=== PATIENT | female | born 1995 | race Hispanic/Latino ===

== ENCOUNTER → 2020-06-15 | Outpatient (CLI) | payer OTHER ==
[2020-06-16 14:47] LABS: SARS-CoV-2 MS2 Positive; SARS-CoV-2 N Gene Negative; SARS-CoV-2 S Gene Negative; SARS-CoV-2 by NAA Not Detected (NotDetected); SARS-CoV-2 orf1ab Negative
== END ==
LOC: LABBT 08:00
PROVIDERS: ATTEND Family Medicine
DX: Z20.828 Contact with and (suspected) exposure to other viral communicable diseases (principal)
CPT/HCPCS: 87635; U0003

== ENCOUNTER 2020-06-16 18:00 | Inpatient (IN) | payer MEDICAID, OTHER, SELFPAY ==
[~2020-06-16 18:00] MED LIST: Bupivacaine/Epinephrine 0.25% 30 ML VIAL ONE
[2020-06-16] MEDS ORDERED: hydrALAZINE 20 MG/ML VIAL SLOW IVP PRN (18:32)
[2020-06-16] MEDS ORDERED: Acetaminophen 500 MG TAB PO PRN (18:32)
[2020-06-16] MEDS ORDERED: Ondansetron PF 4 MG/2 ML Vial IVP PRN (18:32)
[2020-06-16] MEDS ORDERED: Lidocaine 1% (PF) 30 ML VIAL SC PRN (18:32)
[2020-06-16] MEDS ORDERED: NS / Oxytocin 40 units/1000ml 1,000 ML IV PRN (18:32)
[2020-06-16] MEDS ORDERED: Promethazine HCl 25 MG/ML VIAL IM PRN (18:32)
[2020-06-16] MEDS ORDERED: Misoprostol 100 MCG TAB VAG SCH (22:45)
[2020-06-16] MEDS ORDERED: Meperidine HCl/PF 25 MG/ML VIAL IM/IV PRN (22:45)
[2020-06-16] MEDS ORDERED: Butorphanol Tartrate 1 MG/ML VIAL SLOW IVP PRN (22:45)
[2020-06-17 00:06] LABS: Hemoglobin 13.4 g/dL (12.0-16.0); Mean Corpuscular HGB CONC 34.3 g/dL (32.0-36.0); Mean Corpuscular Volume 90.4 fL (78.0-98.0); Mean Platelet Volume 10.5 fL (7.4-10.4); Platelet Count 156 thou/uL (130-400); RBC Distribution Width 13.5 % (11.5-14.5); Red Blood Cell (RBC) Count 4.33 mill/uL (4.20-5.40); White Blood Cell (WBC) Count 6.5 thou/uL (4.8-10.8)
[2020-06-17] MEDS: Lactated Ringer's 1,000 ML IV SCH ×2 (00:09→05:52)
[2020-06-17 00:31] VITALS: BMI 25.0
[2020-06-17 00:33] LABS: HBSAg Index 0.14 S/CO (0-0.99); Hep B Surf Ag Non-Reactive S/CO (NonReactive); Syphilis Antibody Nonreactive (Nonreactive); Syphilis Antibody Index 0.01 S/CO (<1.00 Non-Reactive)
[2020-06-17] MEDS: Misoprostol 100 MCG TAB VAG SCH ×4 (01:09→11:26)
--- NOTE | 2020-06-17 02:33 | PDOC.FPROB ---
FMR OB H&P: HPI - History of Present Illness Chief Complaint: mIOL for A1GDM History of Present Illness: 25 yo presenting for mIOL for A1GDM at 39.6wks by 12.4wk US. Patient is feeling baby move. She denies contractions, bleeding, or LOF. Her BG have been 100-120 lately. FMR OB H&P: Current - Care : 2 Para: 1001 Gestational age: 39.6 Dating Criteria: 12.4wk sono - OB Labs Blood type: A RH: positive Antibody Screen: negative HIV: negative RPR: negative HepBsAg: negative Rubella: immune Quad screen: negative Gonorrhea: negative Chlamydia: negative Pap Smear: NIL 11/2019 1 hour gtt: 2hr: 88/192/79 GBS: negative - Additional Ultrasound Additional: 04/05: Hadlock 27.3% FMR OB H&P: History - Past Medical History PMH: None - OB History OB History: Previous vaginal delivery, no complications - CONGRESSIONAL REPRESENTATIVE History CONGRESSIONAL REPRESENTATIVE History: Pap: NILM 11/2019 - Surgical History Sx History: None - Social History Social History: Denies tobacco, alcohol, or drug use - Family History Family History: Mom-Diabetes FMR OB H&P: Medications - Current Home Medications: Medication Instructions Recorded Confirmed Type Pnv95/Iron Fum/Folic Acid 1 capsule PO DAILY 04/23/16 06/17/20 History [ [place]] Ferrous Sulfate [Iron] 1 tab PO DAILY 06/17/20 06/17/20 History Allergies/Adverse Reactions: Allergies Allergy/AdvReac Type Severity Reaction Status Date / Time No Known Allergies Allergy Verified 06/17/20 00:17 FMR OB H&P: ROS - Review of Systems General: denies: fever/chills Eyes: denies: vision changes ENT: denies: nasal congestion Cardiovascular: denies: chest pain, palpitation, edema Respiratory: denies: cough, congestion, shortness of breath Gastrointestinal: denies: abdominal pain, cramping, nausea, vomiting, diarrhea, constipation Genitourinary (Female): denies: dysuria, vaginal discharge, vaginal bleeding Neurologic: denies: headache FMR OB H&P: Vital Signs - Maternal Vital signs: Vital Signs - First Documented Temp 98.4 F 06/16/20 18:33 BP 116/65 - Heart Tones Baseline: 130 Acceleration: present Deceleration: absent Category: category 1 Wye contractions every: 4-6 min FMR OB H&P: Physical Exam - Physical Exam General: NAD HEENT: normocephalic and atraumatic, EOMI, conjunctiva clear, no scleral icterus , grossly normal vision, grossly normal hearing Neck: FROM Heart: RRR, no murmurs/rubs/gallops, pulses present, no edema General: CTAB, no respiratory distress Abdomen: gravid Musculoskeletal: pulses present, FROM in all four extremities Neurological: sensation to pain,touch and proprioception grossly normal Psychiatric: intact recent and remote memory, good judgement and insight, normal mood and affect - Pelvic Exam Vulva: normal hair distribution, appropriate bela stage, no lesions SVE: 50/-3 Rios score: 4 Membranes: intact Presentation: cephalic FMR OB H&P: Results - Labs Lab results: Laboratory Results - last 24 hr 06/16/20 06/16/20 06/16/20 23:44 23:44 23:44 WBC RBC Hgb Hct MCV MCH MCHC RDW Plt Count MPV POC Glucose Syphilis IgG/IgM Ab Nonreactive Hep Bs Antigen Non-Reactive Blood Type A POSITIVE Antibody Screen NEGATIVE 06/16/20 06/17/20 06/17/20 23:44 00:49 01:04 WBC 6.5 RBC 4.33 Hgb 13.4 Hct 39.1 MCV 90.4 MCH 31.0 MCHC 34.3 RDW 13.5 Plt Count 156 MPV 10.5 H POC Glucose 108 Syphilis IgG/IgM Ab Hep Bs Antigen Blood Type A POSITIVE Antibody Screen FMR OB H&P: A/P Discussion: Date/Time: 06/17/20 0233 25 yo presenting for mIOL for A1GDM at 39.6wks mIOL Baby cephalic presentation Cat 1 tracin/mod/+accels/no deccels 50/-3 @ 0034, Rios 4 Cytotec placed at 0100 A1GDM reason for mIOL BG 100-120 at home 04/05 US showed Hadlock 27.3% Q6h glucose checks This H&P was discussed with Dr. Yusuf and Dr. Smalls who agree with the above documentation and plan. Addendum - Attending - Attending Attestation Date/Time: 06/17/20 0838 I personally evaluated the patient and discussed the management with Dr. Hutchinson at time of admission.. I agree with the History, Examination, Assessment and Plan documented above with any addition or exceptions noted below.
[2020-06-17] MEDS ORDERED: Fentanyl 4 mcg/Bup 0.1% Cadd 100 ML ONE (04:46)
--- NOTE | 2020-06-17 04:55 | PDOC.LDPN ---
Labor & Delivery Progress Note - Subjective Subjective: comfortable, painful contractions - Objective Vital signs reviewed and normal: yes General: NAD, resting SVE: /60/-3 Dilation: 5 Station: -3 FHT: category 1 Leigh contractions every: 1-2 min Plan: continue plan of care -: 25 yo presenting for mIOL for A1GDM at 39.6wks mIOL Baby cephalic presentation Cat 1 tracin/mod/+accels/no deccels /-3 @ 0430, Rios 8 Painful contractions every 1-2 minutes Patient desires epidural Does not require pit at this time, will reevaluate if contractions space out A1GDM reason for mIOL BG 100-120 at home 04/05 US showed Hadlock 27.3% Q6h glucose checks
[2020-06-17] MEDS ORDERED: NS w/ Oxytocin 10 units 500 ML IV SCH ×2 (05:00)
[2020-06-17] MEDS ORDERED: EPHEDRINE 25 MG/5 ML SYRINGE SLOW IVP PRN (05:50)
[2020-06-17] MEDS ORDERED: Lactated Ringer's 500 ML IV PRN (05:50)
[2020-06-17] MEDS ORDERED: Acetaminophen 325 MG TAB PO PRN (05:50)
[2020-06-17] MEDS ORDERED: Ondansetron PF 4 MG/2 ML Vial IVP PRN (05:50)
[2020-06-17] MEDS ORDERED: Promethazine HCl 25 MG/ML VIAL IM PRN (05:50)
[2020-06-17] MEDS ORDERED: diphenhydrAMINE 50 MG/ML VIAL IVP PRN (05:50)
[2020-06-17] MEDS ORDERED: Naloxone HCl 0.4 mg/ml Vial IVP PRN ×2 (05:50)
[2020-06-17] MEDS ORDERED: Communication Order-Pharmacy FS SCH (06:00)
[2020-06-17] MEDS ORDERED: Fentanyl 4 mcg/Bupivacaine 0.1% Cassette 100 ML EPIDURAL SCH (06:00)
--- NOTE | 2020-06-17 07:58 | PDOC.OBLPN ---
FMR OB Labor PN: Subj - Interval History Hospital Day: 1 Chief Complaint: mIOL 2/2 to A1GDM Indentification: @ 39.6 wga by 12.4 wk US Interval History: Anxiety after epidural placement, doing better now FMR OB Labor PN: Obj - Maternal Vital signs: BP: 122/58 HR: 90 Tmax: 98.4 FMR OB Labor PN: Exam - Physical Exam General: NAD HEENT: normocephalic and atraumatic, grossly normal vision, grossly normal hearing Neck: supple, FROM Heart: RRR, normal S1/S2 General: CTAB, no respiratory distress, good air movement, no rales/rhonchi, no wheezing Abdomen: gravid, non-tender Deviation from normal: Decreased sensation due to epidural Skin: no rash Psychiatric: intact recent and remote memory, good judgement and insight, normal mood and affect - Pelvic Exam Vulva: normal hair distribution, appropriate bela stage SVE: /-3 @ ~0630, complete ~0730 Membranes: SROM, clear FMR OB Labor PN: Data - Labs Lab results: Laboratory Results - last 24 hr 06/16/20 06/16/20 06/16/20 23:44 23:44 23:44 WBC RBC Hgb Hct MCV MCH MCHC RDW Plt Count MPV POC Glucose Syphilis IgG/IgM Ab Nonreactive Hep Bs Antigen Non-Reactive Blood Type A POSITIVE Antibody Screen NEGATIVE 06/16/20 06/17/20 06/17/20 23:44 00:49 01:04 WBC 6.5 RBC 4.33 Hgb 13.4 Hct 39.1 MCV 90.4 MCH 31.0 MCHC 34.3 RDW 13.5 Plt Count 156 MPV 10.5 H POC Glucose 108 Syphilis IgG/IgM Ab Hep Bs Antigen Blood Type A POSITIVE Antibody Screen FMR OB Labor PN: A/P Discussion: 25 yo presenting for mIOL for A1GDM at 39.6wks mIOL Baby cephalic presentation Cat 1 tracin, moderate variability /-3 @ 0430, unchanged at ~0630, complete at ~0730 Epidural around 0600 No pit given A1GDM reason for mIOL 94 this am Addendum - Attending - Attending Attestation Date/Time: 06/17/20 0809 I personally evaluated the patient and discussed the management with Dr. Haney I agree with the History, Examination, Assessment and Plan documented above with any addition or exceptions noted below. Prepare for delivery. Maternal glucose < 110 prior to delivery. Tyson
--- NOTE | 2020-06-17 09:13 | PDOC.OPDEL ---
OB Operative/Delivery Note Delivery Dr/Surgeon: Faisal Haney Bray Pre-Delivery Diagnosis: medically indicated induction Procedure/Post Delivery Dx: spontaneous vaginal delivery Anesthesia: epidural - Additional Findings/Plan Placenta delivered: spontaneous Repaired Obstetrical Laceration: 2nd degree Estimated blood loss: 185 Compilations/Other Findings: Delivering Physician: Faisal Haney Attending Procedure: Cyril Spontaneous Vaginal Delivery Anesthesia: epidural Pre-op Diagnosis: 1. Term intrauterine mIOL 2. A1GDM 3. Anemia of Post-op Diagnosis: 1. Term intrauterine , delivered 2. same as above Indications: A 25 y/o female presents to L&D for induction due to A1GDM Delivery Note: This is 25yo F G2 now P2 @ 40wks who delivered a viable F at 0819. Following an uneventful antepartum course, a vigorous female was delivered over an intact perineum in the OA position. Anterior Shoulder and then remainder of the body delivered. No nuchal cord. The head was held down and mouth and nares were bulb suctioned. Cord clamped after delayed cord clamping and cut and cord blood collected. Placenta delivered intact Delatorre presentation with a 3 vessel cord noted. Fundal massage was performed and the fundus was firm. The cervix and vagina were inspected and a 2nd degree perineal laceration and right vaginal sulcus laceration were noted and repaired with 3-[address] in the usual fashion with good approximation and hemostasis. The skin was repaired with a 2-0 on an SH. went to nursery in good condition for routine care. Apgars were 9/9 at 1 & 5 minutes, respectively. Patient tolerated delivery well and went to after routine recovery/ care. Attending Note: I was present and participated in the above documented procedure. Uncomplicated perineal and vaginal lacerations. Repaired in usual fashion. Hemostasis. Routine care. ABrayMD Post delivery plan: routine recovery
[2020-06-17] MEDS ORDERED: Methylergonovine 0.2 MG TAB PO PRN (10:52)
[2020-06-17] MEDS ORDERED: hydrALAZINE 20 MG/ML VIAL SLOW IVP PRN (10:52)
[2020-06-17] MEDS ORDERED: NS / Oxytocin 40 units/1000ml 1,000 ML IV SCH (10:52)
[2020-06-17] MEDS ORDERED: Misoprostol 200 MCG TAB VAG PRN (10:52)
[2020-06-17] MEDS ORDERED: Bisacodyl 10 MG SUPP PR PRN (10:52)
[2020-06-17] MEDS ORDERED: Methylergonovine 0.2 MG/ML VIAL IM PRN (10:52)
[2020-06-17] MEDS ORDERED: Adacel (T-DAP) 0.5 ML SYRINGE IM ONE (10:52)
[2020-06-17] MEDS ORDERED: Milk Of Magnesia 30 ML UDCUP PO PRN (10:52)
[2020-06-17] MEDS ORDERED: Docusate Calcium (SURFAK) 240 MG CAP PO SCH (11:00)
[2020-06-17] MEDS: Ibuprofen 800 MG TAB PO SCH ×2 (11:52→21:52)
[2020-06-17] MEDS: Ferrous Sulfate 325 MG TAB PO SCH (16:44)
[2020-06-17] MEDS: Docusate Calcium (SURFAK) 240 MG CAP PO SCH (21:52)
[2020-06-18] MEDS: Ibuprofen 800 MG TAB PO SCH (05:39)
--- NOTE | 2020-06-18 06:16 | PDOC.PP ---
Post Progress Note Post Day #: 1 Subjective: Pt reports that she is feeling well and would like to go home today. Reports minimal pain, urinating normally, normal lochia, tolerating PO. PO intake tolerated: yes Ambulation: yes Vital Signs (12 hours) Temp Pulse Resp BP Pulse Ox 06/18/20 04:24 98.0 F 73 18 97/55 L 99 06/18/20 00:44 98.3 F 83 16 97/51 L 99 06/17/20 20:11 98.0 F 82 16 104/57 L 98 Weight Weight 66.678 kg - Physical Examination General: NAD Cardiovascular: no m/r/g, RRR Respiratory: clear to auscultation bilaterally, non-labored breathing Abdominal: lochia, appropriately TTP Fundus firm & at: below the umbilicus Skin: no rash Perineum: inspected laceration, appears to be healing normally Psychiatric: A&Ox3, normal affect Result Diagrams: 06/16/20 23:44 Additional Labs: Post Labs Blood Type A POSITIVE 06/17/20 01:04 Hep Bs Antigen Non-Reactive S/CO (NonReactive) 06/16/20 23:44 (1) Vaginal delivery Code(s): O80 - ENCOUNTER FOR FULL-TERM UNCOMPLICATED DELIVERY Status: Acute - Assessment/Plan 25 yo old G2 now P2 s/p with 2nd degree perineal laceration and right posterior vaginal sulcus laceration s/p -tolerating PO, ambulating, urinating -pain well controlled with Ibuprofen -normal lochia -pt would like to go home after 24 hrs A1GDM -well controlled prior to delivery -will need 6 wk f/u for DM Dispo: likely home today pending baby's 24hr bili; f/u with [facility] in 2 weeks.
[2020-06-18 08:49] VITALS: BP 103/56; TEMP 97.4
[2020-06-18] MEDS: Ferrous Sulfate 325 MG TAB PO SCH (09:04)
[2020-06-18] MEDS: Docusate Calcium (SURFAK) 240 MG CAP PO SCH (09:42)
== END 2020-06-18 13:47 | disposition home or self-care (01) | DRG 807 ==
LOC: L&D 22:37 → 3SE 06-17 11:41
PROVIDERS: ADMIT Family Medicine; ATTEND Family Medicine
PROC: 10E0XZZ Delivery of Products of Conception, External Approach (ICD-10-PCS; principal; 2020-06-17)
PROC: 0KQM0ZZ Repair Perineum Muscle, Open Approach (ICD-10-PCS; 2020-06-17)
PROC: 10907ZC Drainage of Amniotic Fluid, Therapeutic from Products of Conception, Via Natural or Artificial Opening (ICD-10-PCS; 2020-06-17)
PROC: 3E033VJ Introduction of Other Hormone into Peripheral Vein, Percutaneous Approach (ICD-10-PCS; 2020-06-17)
PROC: 3E0P7VZ Introduction of Hormone into Female Reproductive, Via Natural or Artificial Opening (ICD-10-PCS; 2020-06-17)
DX: O24.420 Gestational diabetes mellitus in childbirth, diet controlled (principal); Z37.0 Single live birth; O99.02 Anemia complicating childbirth; D64.9 Anemia, unspecified; O70.1 Second degree perineal laceration during delivery; Z3A.39 39 weeks gestation of pregnancy
CPT/HCPCS: 36415; 36416; 51701; 85027; 86780; 86850; 86900; 86901; 87340; 99285